=== PATIENT | male | born 1950 ===

== ENCOUNTER 2017-01-30 17:43 | Emergency (ER) ==
--- NOTE | 2017-01-30 17:59 | UC ---
Cardiac HPI - HPI Summary HPI Summary: The patient comes in today for: 1. "Tick bite." Onset: One week ago. Palliative/provocative: Nothing makes it better or worse. Quality: Itching, soreness Region: Upper left arm. Severity: 10/02 Time: Constant. Associated symptoms: Event: He states that he was bit by a tick while camping near [place] ([facility]). He thinks that the tick was there for 4 days ("It was buried in pretty good."). His female production hand tried to get most of it out with tweezers. It was wiped with alcohol and treated with Neosporin daily. She removed it about 4 days ago. Over time, he has had increasing redness and "lumpy" in that area. It is also itchy. * - History of Current Complaint Chief Complaint: [place] Stated Complaint: TICK Time Seen by Provider: 01/30/17 17:51 Hx Obtained From: Patient - Allergy/Home Medications Allergies/Adverse Reactions: Allergies Allergy/AdvReac Type Severity Reaction Status Date / Time No Known Allergies Allergy Verified 01/30/17 18:23 Home Medications: Home Medications Aspirin [Aspirin 81 MG TAB] 81 mg PO DAILY 01/30/17 [History Confirmed 01/30/17] Lisinopril TAB* [Prinivil TAB 5 MG*] 2.5 mg PO DAILY 01/30/17 [History Confirmed 01/30/17] Metoprolol Succinate XL TAB* [Toprol XL TAB*] 25 mg PO DAILY 01/30/17 [History Confirmed 01/30/17] Prasugrel HCl [Effient] 30 mg PO DAILY 01/30/17 [History Confirmed 01/30/17] Simvastatin [Zocor 5 MG-] 5 mg PO DAILY 01/30/17 [History Confirmed 01/30/17] PMH/Surg Hx/FS Hx/Imm Hx Previously Healthy: No Endocrine History: Dyslipidemia Cardiovascular History: Cardiac Disease - He has a history of cardiac stents. - Family History Known Family History: Positive: Diabetes Negative: Cardiac Disease - Social History Occupation: Retired Lives: With Family Alcohol Use: Occasionally Substance Use Type: None Smoking Status (MU): Former Smoker Review of Systems Constitutional: Negative Skin: Rash Eyes: Negative ENT: Negative Respiratory: Negative Cardiovascular: Negative Gastrointestinal: Negative Genitourinary: Negative All Other Systems Reviewed And Are Negative: Yes Physical Exam Triage Information Reviewed: Yes Appearance: Well-Appearing, No Pain Distress, Well-Nourished Vital Signs: Initial Vital Signs Temp 98.1 F 01/30/17 17:48 Pulse 70 01/30/17 17:48 Resp 18 01/30/17 17:48 BP 135/79 01/30/17 17:48 Pulse Ox 98 01/30/17 17:48 Vital Signs Reviewed: Yes Eyes: Positive: Conjunctiva Clear. Negative: Discharge ENT: Positive: Hearing grossly normal. Negative: Pharyngeal erythema, Nasal congestion, Nasal drainage, TM bulging, TM dull, TM red, Tonsillar swelling, Tonsillar exudate Dental: Negative: Gross Decay/Caries @, Dental Fracture @ Neck: Positive: Supple, Nontender, No Lymphadenopathy. Negative: Nuchal Rigidity Respiratory: Positive: Chest non-tender, Lungs clear, No respiratory distress, No accessory muscle use. Negative: Crackles, Wheezing Cardiovascular: Positive: RRR, No Murmur, Pulses Normal Abdomen Description: Positive: Nontender, No Organomegaly, Soft. Negative: Distended, Guarding Musculoskeletal: Positive: Strength Intact, ROM Intact, No Edema Neurological: Positive: Alert, Muscle Tone Normal Psychological: Positive: Normal Response To Family, Age Appropriate Behavior, Consolable Skin: Positive: rashes - He has a 1 cm indurated and reddened area in the upper inner left arm. There was no fluctuance. And there was minimal tenderness. - Assessment/Plan Course Of Treatment: Patient was told that I could not tell for sure what bit him or what was going on [cellulitis, vs tick bite ([place] Spotted Fever vs Ehrlichiosis, vs [place] tick), but will start him on doxycycline. He is vacationing in this area fo ra week and lives in [place], [place]. HE was told to see his primary care provider in about a week to see how well he is doing. If he gets worse, he is to go the ER. - Clinical Impression Provider Diagnoses: Tick bite. Cellulitis Discharge - Discharge Plan Condition: Stable Disposition: HOME Patient Education Materials: Tick Bite (ED), [place] Spotted Fever (ED) , Lyme Disease (ED) Additional Instructions: Please see your primary care provider in a week to see how well you are doing. If you get worse, please be seen sooner in the ER or through us.
== END 2017-01-30 19:34 | disposition home or self-care (01) ==
LOC: UCEAST 17:43
DX: S40.862A Insect bite (nonvenomous) of left upper arm, initial encounter (principal); L03.90 Cellulitis, unspecified; W57.XXXA Bitten or stung by nonvenomous insect and other nonvenomous arthropods, initial encounter; Y93.9 Activity, unspecified; Y92.9 Unspecified place or not applicable; Y99.9 Unspecified external cause status; Z87.891 Personal history of nicotine dependence
CPT/HCPCS: 99201; G0463